=== PATIENT | male | born 1980 | race Two or more races ===

== ENCOUNTER 2016-11-05 01:03 | Emergency (ER) | payer SELFPAY ==
[~2016-11-05] VITALS: Ht 185.4 cm; Wt 81.6 kg
[2016-11-05 01:55] VITALS: BP 123/79
[2016-11-05] MEDS ORDERED: TDAP [DIPH/PERTUSSIS/TET] 0.5 ML VIAL IM ONE ×2 (03:00→04:35)
--- NOTE | 2016-11-05 04:41 | NUR ---
Patient discharged to home in stable condition. Written and verbal after care instructions given. Patient verbalizes understanding of instruction. ambulatory with a steady gait
== END 2016-11-05 04:43 | disposition home or self-care (01) ==
LOC: ER 01:05
DX: S09.90XA Unspecified injury of head, initial encounter (principal); S60.512A Abrasion of left hand, initial encounter; S60.511A Abrasion of right hand, initial encounter; S70.312A Abrasion, left thigh, initial encounter; R51 Headache; F20.9 Schizophrenia, unspecified; V19.3XXA Pedal cyclist (driver) (passenger) injured in unspecified nontraffic accident, initial encounter; Y93.89 Activity, other specified; Y92.89 Other specified places as the place of occurrence of the external cause; Y99.8 Other external cause status
CPT/HCPCS: 70450; 72125; 90471; 90715; 99284; A4606; Z7610